=== PATIENT | male | born 1980 ===

== ENCOUNTER 2016-12-28 04:00 | Emergency (ER) | payer OTHER ==
[2016-12-28 04:18] VITALS: BP 112/75; PULSE 92; TEMP 98.2; O2SAT 98
--- NOTE | 2016-12-28 05:17 | C.PDOC ---
History Of Present Illness 36 y/o male presents to ER requesting MRI of his left hand after being placed in tight handcuffs overnight. Pt denies fall or other trauma , no weakness or numbness Time Seen by Provider: 12/28/16 04:26 Chief Complaint (Nursing): Finger,Hand,&Wrist History Per: Patient History/Exam Limitations: no limitations Severity: Moderate Exacerbating Factor(s): Movement (of left thumb) Past Medical History Vital Signs: Last Vital Signs Temp 98.2 F 12/28/16 04:15 Pulse 92 H 12/28/16 04:15 Resp 18 12/28/16 04:15 BP 112/75 12/28/16 04:15 Pulse Ox 98 12/28/16 05:38 - Medical History PMH: Anxiety, Asthma, Back Problems, Bipolar Disorder, Depression, HTN, Pancreatitis Denies: Chronic Kidney Disease - [facility] Procedures SUTURE OF LIP LACERATION (08/18/14) TETANUS TOXOID ADMINIST (08/18/14) VACCINATION NEC (05/14/15) Family History: States: Unknown Family Hx - Social History Hx Tobacco Use: Yes Hx Alcohol Use: Yes Hx Substance Use: Yes - Immunization History Hx Tetanus Toxoid Vaccination: Yes Hx Influenza Vaccination: No Hx Pneumococcal Vaccination: No Review Of Systems Musculoskeletal: Positive for: Hand Pain (and wrist pain) Neurological: Negative for: Weakness, Numbness Physical Exam - Physical Exam Appears: Well, No Acute Distress Skin: Normal Color Eye(s): bilateral: Normal Inspection Extremity: Normal ROM (but pain to left wrist and thumb on movements), Tenderness (to dorsal left wrist ), Capillary Refill (< 2 sec), No Deformity, No Swelling Extremity: Bilateral: Normal Color And Temperature Pulses: Left Radial: Normal, Right Radial: Normal Neurological/Psych: Oriented x3, Normal Motor, Normal Sensation ED Course And Treatment O2 Sat by Pulse Oximetry: 98 - Other Rad LeftWrist XR X-Ray: Interpreted by Me, Viewed By Me Interpretation: No fx or dislocation Progress Note: Pt isisted on MRI and states was told by [facility] medical staff that he needed a MRI, , I explained to pt that I will not be able to order an MRI from the ER and that an XR is not indicated either, then pt became loud and argumentative insisting now on XR. A Wrist XR ordered and does not reveal any fracture or dislocation. Pt advised to take advil and to follow up with PMD Reevaluation Time: 06:00 Reassessment Condition: Improved Disposition Counseled Patient/Family Regarding: Diagnosis, Need For Followup, Rx Given - Disposition Referrals: Non [facility] Provider, [Primary Care Provider] - Disposition Time: 05:56 Condition: STABLE Additional Instructions: Please follow up with your doctor Tylenol or advil for pain Return to ER if worse Instructions: Wrist Injury (ED) - Clinical Impression Clinical Impression: Left wrist sprain
[2016-12-28 06:27] VITALS: RESP 20
--- NOTE | 2016-12-28 10:56 | RAD ---
PROCEDURE: Left Wrist Radiographs. HISTORY: PAIN AFTER BEING IN HANDCUFFS COMPARISON: None. FINDINGS: BONES: Normal. No fracture. JOINTS: Normal. No dislocation. SOFT TISSUES: Normal. OTHER FINDINGS: None. IMPRESSION: Normal left wrist radiographs.
== END 2016-12-28 06:14 | disposition home or self-care (01) ==
LOC: C.ER 04:00 → SUPCPDRO 04:00 → C.ER 06:14
DX: S63.502A Unspecified sprain of left wrist, initial encounter (principal); X58.XXXA Exposure to other specified factors, initial encounter

== ENCOUNTER 2017-01-14 22:57 | Emergency (ER) | payer OTHER ==
[2017-01-14 23:12] VITALS: RESP 20
--- NOTE | 2017-01-15 00:18 | C.PDOC ---
History Of Present Illness Patient is a 36 year old male who presents to the ER with a complaint of generalized weakness and lightheadedness. Patient was seen recently in [place] ER for similar symptoms. Denies any suicidal ideation, homicidal ideation, headache, fever, nausea, or vomiting. Chief Complaint (Nursing): Medical Clearance History/Exam Limitations: no limitations Onset/Duration Of Symptoms: Hrs Current Symptoms Are (Timing): Still Present Past Medical History Reviewed: Historical Data, Nursing Documentation, Vital Signs Vital Signs: Last Vital Signs Temp 98.1 F 01/14/17 23:10 Pulse 85 01/14/17 23:10 Resp 20 01/14/17 23:10 BP 113/68 01/14/17 23:10 Pulse Ox 97 01/15/17 02:17 - Medical History PMH: Anxiety, Asthma, Back Problems, Bipolar Disorder, Depression, HTN, Pancreatitis Surgical History: No Surg Hx - [facility] Procedures SUTURE OF LIP LACERATION (08/18/14) TETANUS TOXOID ADMINIST (08/18/14) VACCINATION NEC (05/14/15) Family History: States: Unknown Family Hx - Social History Hx Tobacco Use: Yes Hx Alcohol Use: Yes (DENIED 01/14/2017) Hx Substance Use: Yes (DENIED 01/14/2017) - Immunization History Hx Tetanus Toxoid Vaccination: Yes Hx Influenza Vaccination: No Hx Pneumococcal Vaccination: No Review Of Systems Constitutional: Negative for: Fever, Chills Gastrointestinal: Negative for: Nausea, Vomiting Neurological: Positive for: Weakness, Other (Lightheadedness) Psych: Negative for: Suicidal ideation, Other (Homicidal Ideation) Physical Exam - Physical Exam Appears: Well, Non-toxic, No Acute Distress, Other (Verbalizing weakly) Skin: Normal Color, Warm, Dry Head: Atraumatic, Normacephalic Oral Mucosa: Moist Chest: Symmetrical, No Tenderness Cardiovascular: Rhythm Regular, No Murmur Respiratory: Normal Breath Sounds, No Rales, No Rhonchi, No Wheezing Gastrointestinal/Abdominal: Soft, No Tenderness Neurological/Psych: Oriented x3, Normal Speech, Normal Cognition, Normal Motor, Normal Sensation, Other (No focal deficit) ED Course And Treatment - Laboratory Results Result Diagrams: 01/14/17 23:50 01/14/17 23:50 O2 Sat by Pulse Oximetry: 97 (Room air) Pulse Ox Interpretation: Normal Progress Note: Blood work, EKG, and urinalysis ordered. Disposition Counseled Patient/Family Regarding: Diagnosis - Disposition Referrals: [facility] at [facility] [Outside] Disposition: HOME/ ROUTINE Disposition Time: 02:35 Condition: STABLE Instructions: Bipolar Disorder (ED), Hypocalcemia (ED), Weakness (ED) - POA Present On Arrival: None - Clinical Impression Clinical Impression: Weakness, Bipolar disorder, Hypocalcemia - Scribe Statement The provider has reviewed the documentation as recorded by the Scribscot Newman All medical record entries made by the Cathrynibscot were at my direction and personally dictated by me. I have reviewed the chart and agree that the record accurately reflects my personal performance of the history, physical exam, medical decision making, and the department course for this patient. I have also personally directed, reviewed, and agree with the discharge instructions and disposition.
[2017-01-15 00:30] LABS: CHLORIDE 104 mmol/L (98-107); POTASSIUM 3.8 mmol/L (3.6-5.2); SODIUM 142 mmol/L (132-148)
[2017-01-15 00:32] LABS: BILIRUBIN,TOTAL 0.6 mg/dL (0.2-1.3); GFR AFRICAN-AMERICAN > 60
[2017-01-15 00:33] LABS: ALB/GLOB RATIO 1.4 (1.0-2.1); ALKALINE PHOSPHATASE 42 U/L (38-126); ALT/SGPT 46 U/L (21-72); AST/SGOT 35 U/L (17-59); BLOOD UREA NITROGEN 8 mg/dL (9-20); CARBON DIOXIDE 25 mmol/L (22-30); GLUCOSE,RANDOM 78 mg/dL (75-110); TOTAL PROTEIN 6.9 g/dL (6.3-8.3)
[2017-01-15 00:34] LABS: CALCIUM 8.3 mg/dl (8.6-10.4)
[2017-01-15 00:36] LABS: BASO % 0.3 % (0.0-2.0); EOS # 0.2 K/uL (0.0-0.7); EOS % 1.9 % (0.0-4.0); HEMATOCRIT 41.6 % (35.0-51.0); LYMPH # 2.7 K/uL (1.0-4.3); LYMPH % 33.8 % (20.0-40.0); MEAN CELL VOLUME 88.7 fL (80.0-94.0); MEAN CORPUSCULAR HEMOGLOBIN 30.5 pg (27.0-31.0); MEAN CORPUSCULAR HGB CONC 34.4 g/dL (33.0-37.0); MEAN PLATELET VOLUME 9.6 fL (7.2-11.7); MONO # 0.6 K/uL (0.0-0.8); NRBC % 0.1 % (0.0-2.0); RED CELL DISTRIBUTION WIDTH 12.8 % (11.5-14.5); WHITE BLOOD COUNT 7.9 K/uL (4.8-10.8)
[2017-01-15 02:53] VITALS: BP 127/70; PULSE 93; TEMP 97.8; O2SAT 99
--- NOTE | 2017-01-20 09:11 | CARD ---
APPROVED REPORT EKG Measurement Heart [id number] [id number] <Conclusion> Normal sinus rhythm Normal ECG
== END 2017-01-15 02:53 | disposition home or self-care (01) ==
LOC: C.ER 22:57
DX: E83.51 Hypocalcemia (principal); F31.9 Bipolar disorder, unspecified; R53.1 Weakness

== ENCOUNTER 2017-06-19 02:20 | Emergency (ER) | payer OTHER ==
--- NOTE | 2017-06-19 03:34 | C.PDOC ---
History Of Present Illness 36 year old male presents to the ED with complaints of right ankle pain sustained when twisted his ankle a "long time ago." Patient denies any recent trauma, weakness, numbness, or other complaints at this time. Time Seen by Provider: 06/19/17 03:06 Chief Complaint (Nursing): Lower Extremity Problem/Injury History Per: Patient History/Exam Limitations: no limitations Onset/Duration Of Symptoms: Persistent Current Symptoms Are (Timing): Still Present Recent travel outside of the [place]: No Additional History Per: Prior Records Past Medical History Reviewed: Historical Data, Nursing Documentation, Vital Signs Vital Signs: Last Vital Signs Temp 98.3 F 06/19/17 05:50 Pulse 88 06/19/17 05:50 Resp 19 06/19/17 05:50 BP 123/78 06/19/17 05:50 Pulse Ox 96 06/19/17 05:50 - Medical History PMH: Anxiety, Asthma, Back Problems, Bipolar Disorder, Depression, HTN (no meds) , Pancreatitis - [facility] Procedures SUTURE OF LIP LACERATION (08/18/14) TETANUS TOXOID ADMINIST (08/18/14) VACCINATION NEC (05/14/15) Family History: States: Unknown Family Hx - Social History Hx Tobacco Use: Yes Hx Alcohol Use: Yes Hx Substance Use: Yes - Immunization History Hx Tetanus Toxoid Vaccination: Yes Hx Influenza Vaccination: No Hx Pneumococcal Vaccination: No Review Of Systems Constitutional: Negative for: Fever, Chills Musculoskeletal: Positive for: Foot Pain (right ankle pain ) Neurological: Negative for: Weakness, Numbness Physical Exam - Physical Exam Appears: Non-toxic, No Acute Distress Skin: Warm, Dry Head: Atraumatic, Normacephalic Eye(s): bilateral: Normal Inspection, PERRL, EOMI Neck: Supple Extremity: Normal ROM, Tenderness (mild tenderness to lateral right ankle ), No Pedal Edema, No Calf Tenderness, Capillary Refill (good capillary refill, less than two seconds ), No Deformity, Swelling (mild swelling to lateral right ankle ) Pulses: Left Dorsalis Pedis: Normal, Right Dorsalis Pedis: Normal Neurological/Psych: Oriented x3 ED Course And Treatment O2 Sat by Pulse Oximetry: 98 (RA) Progress Note: ZEB bandage was applied and patient was given motrin. Disposition Counseled Patient/Family Regarding: Diagnosis, Need For Followup - Disposition Referrals: [facility] [Outside] Disposition: HOME/ ROUTINE Disposition Time: 05:28 Condition: STABLE Additional Instructions: Wear zeb bandage for comfort. Keep foot elevated when possible. Take Tylenol or Motrin for pain. Follow up in medical clinic. Instructions: Ankle Sprain (ED) Forms: General Discharge Instructions, [facility] (French) - Clinical Impression Clinical Impression: Right ankle sprain - PA / DIRECTORY CARRIER / Resident Statement MD/DO has reviewed & agrees with the documentation as recorded. - Scribe Statement The provider has reviewed the documentation as recorded by the Scribe Marcia Hernandez All medical record entries made by the Cathrynibscot were at my direction and personally dictated by me. I have reviewed the chart and agree that the record accurately reflects my personal performance of the history, physical exam, medical decision making, and the department course for this patient. I have also personally directed, reviewed, and agree with the discharge instructions and disposition.
[2017-06-19 05:51] VITALS: BP 123/78; PULSE 88; RESP 19; TEMP 98.3
[2017-06-19 06:28] VITALS: O2SAT 98
== END 2017-06-19 06:09 | disposition home or self-care (01) ==
LOC: C.ER 02:20
DX: S93.401A Sprain of unspecified ligament of right ankle, initial encounter (principal); X50.9XXA Other and unspecified overexertion or strenuous movements or postures, initial encounter

== ENCOUNTER 2017-07-08 01:36 | Emergency (ER) | payer MEDICAID, OTHER ==
[2017-07-08 01:36] VITALS: BMI 25.8
[2017-07-08] MEDS ORDERED: Sodium Chloride 0.9% 1,000 ML IV ONE (02:08)
--- NOTE | 2017-07-08 02:09 | C.PDOC ---
History Of Present Illness 36 year old male presents to the ED for evaluation of dizziness which began earlier tonight. Patient admits to smoking marijuana. He denies headache, vision change, extremity numbness/weakness. Chief Complaint (Nursing): Dizziness/Lightheaded History Per: Patient History/Exam Limitations: no limitations Onset/Duration Of Symptoms: Hrs Current Symptoms Are (Timing): Still Present Associated Symptoms Preceding Syncopal Episode: No Predromal Symptoms (Sudden Onset) Additional History Per: Patient Past Medical History Reviewed: Historical Data, Nursing Documentation, Vital Signs Vital Signs: Last Vital Signs Temp 97.8 F 07/08/17 01:48 Pulse 112 H 07/08/17 01:48 Resp 20 07/08/17 01:48 BP 126/85 07/08/17 01:48 Pulse Ox 97 07/08/17 02:14 - Medical History PMH: Anxiety, Asthma, Back Problems, Bipolar Disorder, Depression, HTN (no meds) , Pancreatitis Denies: Diabetes, Hepatitis, HIV, Chronic Kidney Disease, Seizures, Sexually Transmitted Disease Surgical History: No Surg Hx - [facility] Procedures SUTURE OF LIP LACERATION (08/18/14) TETANUS TOXOID ADMINIST (08/18/14) VACCINATION NEC (05/14/15) Family History: States: Unknown Family Hx - Social History Hx Tobacco Use: Yes Hx Alcohol Use: No Hx Substance Use: Yes - Immunization History Hx Tetanus Toxoid Vaccination: Yes Hx Influenza Vaccination: No Hx Pneumococcal Vaccination: No Review Of Systems Eyes: Negative for: Vision Change Neurological: Positive for: Dizziness. Negative for: Weakness, Numbness, Headache Physical Exam - Physical Exam Appears: Non-toxic, No Acute Distress, Other (under the influence ) Skin: Normal Color, Warm, Dry Head: Atraumatic, Normacephalic Eye(s): bilateral: Normal Inspection Oral Mucosa: Moist Neck: Supple Chest: Symmetrical, No Deformity, No Tenderness Cardiovascular: Rhythm Regular, No Murmur Respiratory: Normal Breath Sounds, No Rales, No Rhonchi, No Wheezing Extremity: Normal ROM, Capillary Refill (less than 2 seconds ) Neurological/Psych: Oriented x3, Other (no focal deficits ) Gait: Steady ED Course And Treatment - Laboratory Results Result Diagrams: 07/08/17 02:27 07/08/17 02:27 ECG: Interpreted By Me, Viewed By Me ECG Rhythm: Sinus Rhythm ECG Interpretation: Normal, No Acute Changes Interpretation Of ECG: NSR. normal tracings Rate From EC O2 Sat by Pulse Oximetry: 97 (on RA) Pulse Ox Interpretation: Normal Progress Note: Labs, EKG, and UA ordered and reviewed. IV Fluids administered. Disposition Counseled Patient/Family Regarding: Diagnosis - Disposition Referrals: [facility] [Outside] Disposition: HOME/ ROUTINE Disposition Time: 05:27 Condition: STABLE Instructions: Polysubstance Abuse (ED) Forms: [employer] (Belgian) - POA Present On Arrival: None - Clinical Impression Clinical Impression: Polysubstance abuse - Scribe Statement The provider has reviewed the documentation as recorded by the Scribe (Samia Bhardwaj) Provider Attestation: All medical record entries made by the Scribe were at my direction and personally dictated by me. I have reviewed the chart and agree that the record accurately reflects my personal performance of the history, physical exam, medical decision making, and the department course for this patient. I have also personally directed, reviewed, and agree with the discharge instructions and disposition.
[2017-07-08] MEDS ORDERED: Sodium Chloride 0.9% 1,000 ML ONE (02:15)
[2017-07-08 02:32] LABS: BASO % 0.2 % (0.0-2.0); EOS # 0.2 K/uL (0.0-0.7); EOS % 2.5 % (0.0-4.0); HEMATOCRIT 44.7 % (35.0-51.0); LYMPH # 1.7 K/uL (1.0-4.3); LYMPH % 21.4 % (20.0-40.0); MEAN CELL VOLUME 88.4 fL (80.0-94.0); MEAN CORPUSCULAR HEMOGLOBIN 30.2 pg (27.0-31.0); MEAN CORPUSCULAR HGB CONC 34.2 g/dL (33.0-37.0); MEAN PLATELET VOLUME 9.9 fL (7.2-11.7); MONO # 0.7 K/uL (0.0-0.8); MONO % 8.2 % (0.0-10.0); RED CELL DISTRIBUTION WIDTH 13.4 % (11.5-14.5); WHITE BLOOD COUNT 8.1 K/uL (4.8-10.8)
[2017-07-08 02:33] LABS: RBC URINE < 1 /hpf (0-3); URINE BILIRUBIN NEGATIVE (NEGATIVE); URINE BLOOD NEGATIVE (NEGATIVE); URINE COLOR Straw (YELLOW); URINE GLUCOSE (UA) NORMAL (Normal); URINE KETONE NEGATIVE (NEGATIVE); URINE LEUKOCYTE ESTERASE NEG Leu/uL (Negative); URINE PROTEIN NEGATIVE (NEGATIVE); URINE UROBILINOGEN NORMAL mg/dL (0.2-1.0)
[2017-07-08 03:09] LABS: ALB/GLOB RATIO 1.2 (1.0-2.1); ALCOHOL SERUM < 10 mg/dl (0-10); ALKALINE PHOSPHATASE 54 U/L (38-126); ALT/SGPT 49 U/L (21-72); AST/SGOT 34 U/L (17-59); BILIRUBIN,TOTAL 0.5 mg/dL (0.2-1.3); BLOOD UREA NITROGEN 15 mg/dL (9-20); CALCIUM 9.6 mg/dl (8.6-10.4); CARBON DIOXIDE 32 mmol/L (22-30); CHLORIDE 97 mmol/L (98-107); GFR AFRICAN-AMERICAN > 60; GLUCOSE,RANDOM 85 mg/dL (75-110); POTASSIUM 3.8 mmol/L (3.6-5.2); SODIUM 138 mmol/L (132-148); TOTAL PROTEIN 8.2 g/dL (6.3-8.3)
[2017-07-08 05:45] VITALS: BP 112/70; PULSE 72; RESP 16; TEMP 98.1; O2SAT 96
--- NOTE | 2017-07-09 11:49 | CARD ---
APPROVED REPORT EKG Measurement Heart [id number] 140P69 [id number] <Conclusion> Normal sinus rhythm Normal ECG
== END 2017-07-08 05:37 | disposition home or self-care (01) ==
LOC: C.ER 01:36
DX: F12.90 Cannabis use, unspecified, uncomplicated (principal); I10 Essential (primary) hypertension; Z87.891 Personal history of nicotine dependence
CPT/HCPCS: 80053; 80320; 80324; 80345; 80346; 80349; 80353; 80358; 80361; 81001; 83992; 85025; 93005; 99285; J7040

== ENCOUNTER 2017-10-30 01:47 | Emergency (ER) | payer MEDICAID, OTHER ==
[2017-10-30 01:49] VITALS: BMI 25.8
[2017-10-30 02:37] VITALS: RESP 20; O2SAT 97
--- NOTE | 2017-10-30 05:42 | C.PDOC ---
History Of Present Illness Patient is a 36 y/o male who presents to the ED with complaint of flu-like symptoms for the last 2 days. Patient reports itchy and watery eyes, back pain, and runny nose. Denies any fever, chills, headache, or past medical problems. Patient notes niece was sick last week with the flu. No other physical complaints at this time. Time Seen by Provider: 10/30/17 05:15 Chief Complaint (Nursing): Cough, Cold, Congestion History Per: Patient History/Exam Limitations: no limitations Onset/Duration Of Symptoms: Days (2 days) Current Symptoms Are (Timing): Still Present Associated Symptoms: Cough, Sinus Drainage (runny nose). denies: Fever, Chills Recent travel outside of the [place]: No Past Medical History Reviewed: Historical Data, Nursing Documentation, Vital Signs Vital Signs: Last Vital Signs Temp 98 F 10/30/17 02:34 Pulse 86 10/30/17 02:34 Resp 20 10/30/17 02:34 BP 115/75 10/30/17 02:34 Pulse Ox 97 10/30/17 05:44 - Medical History PMH: Anxiety, Asthma, Back Problems, Bipolar Disorder, Depression, HTN (no meds) , Pancreatitis Denies: Diabetes, Hepatitis, HIV, Chronic Kidney Disease, Seizures, Sexually Transmitted Disease Surgical History: No Surg Hx - [facility] Procedures GROUP PSYCHOTHERAPY (07/02/17) INDIVIDUAL PSYCHOTHERAPY, COGNITIVE-BEHAVIORAL (07/02/17) SUTURE OF LIP LACERATION (08/18/14) TETANUS TOXOID ADMINIST (08/18/14) VACCINATION NEC (05/14/15) Family History: States: No Known Family Hx - Social History Hx Tobacco Use: Yes Hx Alcohol Use: No Hx Substance Use: Yes - Immunization History Hx Tetanus Toxoid Vaccination: Yes Hx Influenza Vaccination: No Hx Pneumococcal Vaccination: No Review Of Systems Constitutional: Negative for: Fever, Chills Eyes: Positive for: Other (watery and itchy eyes) Respiratory: Positive for: Cough Musculoskeletal: Positive for: Back Pain Neurological: Negative for: Headache Physical Exam - Physical Exam Appears: Non-toxic, No Acute Distress Skin: Normal Color, Warm, Dry Head: Atraumatic, Normacephalic Nose: Normal, No Discharge Oral Mucosa: Moist Throat: Normal, Erythema (mild), No Exudate Neck: Supple Chest: Symmetrical Cardiovascular: Rhythm Regular, No Murmur Respiratory: Normal Breath Sounds, No Rales, No Rhonchi, No Wheezing Extremity: Normal ROM (x4), No Tenderness Neurological/Psych: Oriented x3, Normal Speech, Normal Cognition ED Course And Treatment O2 Sat by Pulse Oximetry: 97 Progress Note: Motrin administered. Patient advised to follow up with PMD if symptoms worsen. Patient agrees with plan and is discharged. Medical Decision Making Medical Decision Making: sore throat body aches, cough back pain watery eyes, no fever- tx supportively for viral. syndrome Disposition Counseled Patient/Family Regarding: Diagnosis, Need For Followup, Rx Given - Disposition Referrals: [facility] at [facility] [Outside] Disposition: HOME/ ROUTINE Disposition Time: 05:43 Condition: STABLE Additional Instructions: Take ibupforen as prescribed for pains. Drink increased fluids, and more rest. Follow up in medical clinic next week. Prescriptions: Ibuprofen [Motrin] 600 mg PO TID #30 tab Instructions: Upper Respiratory Infection (ED) Forms: [facility] (Khmer), General Discharge Instructions - Clinical Impression Clinical Impression: Upper respiratory infection - Scribe Statement The provider has reviewed the documentation as recorded by the Scribe Gia Crawford All medical record entries made by the Scribe were at my direction and personally dictated by me. I have reviewed the chart and agree that the record accurately reflects my personal performance of the history, physical exam, medical decision making, and the department course for this patient. I have also personally directed, reviewed, and agree with the discharge instructions and disposition.
[2017-10-30 06:08] VITALS: BP 118/70; PULSE 89; TEMP 97.1
== END 2017-10-30 06:08 | disposition home or self-care (01) ==
LOC: C.ER 01:47
DX: J06.9 Acute upper respiratory infection, unspecified (principal)

== ENCOUNTER 2017-11-08 04:25 | Emergency (ER) | payer OTHER ==
[2017-11-08 04:25] VITALS: BMI 25.8
[2017-11-08 04:50] VITALS: RESP 20
[2017-11-08 04:57] VITALS: BP 101/65; PULSE 70; TEMP 98.2; O2SAT 100
--- NOTE | 2017-11-08 05:32 | C.PDOC ---
History Of Present Illness Pt c/o left sided back/neck pain. Denies injury. Time Seen by Provider: 11/08/17 04:57 Chief Complaint (Nursing): Back Pain History Per: Patient Onset/Duration Of Symptoms: Days (1) Current Symptoms Are (Timing): Still Present Severity: Moderate Exacerbating Factor(s): Turning, Movement Additional History Per: Prior Records Past Medical History Reviewed: Historical Data, Nursing Documentation, Vital Signs Vital Signs: Last Vital Signs Temp 98.2 F 11/08/17 04:56 Pulse 70 11/08/17 04:56 Resp 20 11/08/17 04:56 BP 101/65 11/08/17 04:56 Pulse Ox 100 11/08/17 05:32 - Medical History PMH: Anxiety, Asthma, Back Problems, Bipolar Disorder, Depression, HTN (no meds) , Pancreatitis - [facility] Procedures GROUP PSYCHOTHERAPY (07/02/17) INDIVIDUAL PSYCHOTHERAPY, COGNITIVE-BEHAVIORAL (07/02/17) SUTURE OF LIP LACERATION (08/18/14) TETANUS TOXOID ADMINIST (08/18/14) VACCINATION NEC (05/14/15) Family History: States: Unknown Family Hx - Social History Hx Tobacco Use: Yes Hx Alcohol Use: No Hx Substance Use: Yes - Immunization History Hx Tetanus Toxoid Vaccination: Yes Hx Influenza Vaccination: No Hx Pneumococcal Vaccination: No Review Of Systems Except As Marked, All Systems Reviewed And Found Negative. Constitutional: Negative for: Fever Cardiovascular: Negative for: Chest Pain Respiratory: Negative for: Shortness of Breath Gastrointestinal: Negative for: Vomiting, Abdominal Pain Genitourinary: Negative for: Dysuria Musculoskeletal: Positive for: Neck Pain, Back Pain Skin: Negative for: Rash Neurological: Negative for: Weakness, Numbness, Seizures, Altered Mental Status , Headache Physical Exam - Physical Exam Appears: Non-toxic, No Acute Distress Skin: Normal Color, Warm, Dry, No Rash Head: Atraumatic, Normacephalic Eye(s): bilateral: PERRL Neck: Normal ROM, No Midline Cervical Tenderness, Paracervical Tenderness (left) , No Step Off Deformity, Supple Cardiovascular: Rhythm Regular Respiratory: Normal Breath Sounds, No Accessory Muscle Use Gastrointestinal/Abdominal: Soft, No Tenderness Back: No CVA Tenderness, No Vertebral Tenderness, Paraspinal Tenderness (left) Extremity: Normal ROM, No Pedal Edema, No Calf Tenderness Pulses: Left Radial: Normal, Right Radial: Normal Neurological/Psych: Oriented x3, Normal Motor, Normal Sensation ED Course And Treatment O2 Sat by Pulse Oximetry: 100 Pulse Ox Interpretation: Normal Reassessment Condition: Improved Disposition Counseled Patient/Family Regarding: Diagnosis, Need For Followup, Rx Given - Disposition Disposition: HOME/ ROUTINE Disposition Time: 05:37 Condition: IMPROVED Additional Instructions: Follow up with your doctor within 2 days. Return to the ER if you develop weakness, numbness, worsening of symptoms or if you have any other concerns. Prescriptions: Naproxen [Naprosyn] 1 tab PO BID PRN #20 tab PRN Reason: Pain Instructions: Muscle Strain (DC) Forms: [facility] (Thai), General Discharge Instructions - Clinical Impression Clinical Impression: Pain of left side of body
== END 2017-11-08 05:41 | disposition home or self-care (01) ==
LOC: C.ER 04:25
DX: M79.1 Myalgia (principal)
CPT/HCPCS: 96372; 99283; J1885

== ENCOUNTER 2017-11-09 20:24 | Emergency (ER) | payer OTHER ==
[2017-11-09 20:24] VITALS: BMI 25.8
--- NOTE | 2017-11-09 22:16 | C.PDOC ---
Chief Complaint (Nursing): Chest Pain Past Medical History Vital Signs: Last Vital Signs Temp 98.2 F 11/09/17 20:52 Pulse 102 H 11/09/17 20:52 Resp 20 11/09/17 20:52 BP 127/75 11/09/17 20:52 Pulse Ox 98 11/09/17 20:52 - Medical History PMH: Anxiety, Asthma, Back Problems, Bipolar Disorder, Depression, HTN (no meds) , Pancreatitis Denies: HIV, Chronic Kidney Disease, Seizures, Sexually Transmitted Disease - [facility] Procedures GROUP PSYCHOTHERAPY (07/02/17) INDIVIDUAL PSYCHOTHERAPY, COGNITIVE-BEHAVIORAL (07/02/17) SUTURE OF LIP LACERATION (08/18/14) TETANUS TOXOID ADMINIST (08/18/14) VACCINATION NEC (05/14/15) Family History: States: Unknown Family Hx - Social History Hx Tobacco Use: Yes Hx Alcohol Use: No Hx Substance Use: Yes - Immunization History Hx Tetanus Toxoid Vaccination: Yes Hx Influenza Vaccination: No Hx Pneumococcal Vaccination: No ED Course And Treatment O2 Sat by Pulse Oximetry: 98 Disposition - Disposition Forms: [facility] (Central African)
--- NOTE | 2017-11-09 22:18 | C.PDOC ---
History Of Present Illness 36 y/o male presents to the ED for evaluation of mid-sternal chest pain which began around 2 days ago. Patient reports he often does some heavy lifting around the house. He states the pain worsens when he applies "pressure" onto the area. He denies fever, chills, cough, sore throat, ear pain, or pain with deep breathing. Chief Complaint (Nursing): Chest Pain History Per: Patient History/Exam Limitations: no limitations Onset/Duration Of Symptoms: Days (2) Current Symptoms Are (Timing): Still Present Quality: "Pain" Exacerbating Factors: denies: Deep Breathing Additional History Per: Patient Past Medical History Reviewed: Historical Data, Nursing Documentation, Vital Signs Vital Signs: Last Vital Signs Temp 97.9 F 11/09/17 22:26 Pulse 93 H 11/09/17 22:26 Resp 18 11/09/17 22:26 BP 122/71 11/09/17 22: Pulse Ox 98 11/10/17 00:51 - Medical History PMH: Anxiety, Asthma, Back Problems, Bipolar Disorder, Depression, HTN (no meds) , Pancreatitis Denies: HIV, Chronic Kidney Disease, Seizures, Sexually Transmitted Disease Surgical History: No Surg Hx - [facility] Procedures GROUP PSYCHOTHERAPY (07/02/17) INDIVIDUAL PSYCHOTHERAPY, COGNITIVE-BEHAVIORAL (07/02/17) SUTURE OF LIP LACERATION (08/18/14) TETANUS TOXOID ADMINIST (08/18/14) VACCINATION NEC (05/14/15) Family History: States: Unknown Family Hx - Social History Hx Tobacco Use: Yes Hx Alcohol Use: No Hx Substance Use: Yes - Immunization History Hx Tetanus Toxoid Vaccination: Yes Hx Influenza Vaccination: No Hx Pneumococcal Vaccination: No Review Of Systems Constitutional: Negative for: Fever, Chills ENT: Negative for: Ear Pain, Throat Pain Cardiovascular: Positive for: Chest Pain (mid-sternal ) Respiratory: Negative for: Cough Physical Exam - Physical Exam Appears: Non-toxic, No Acute Distress Skin: Normal Color, Warm, Dry Head: Atraumatic, Normacephalic Eye(s): bilateral: Normal Inspection Oral Mucosa: Moist Neck: Supple Chest: Symmetrical, Tenderness (right-sided costochondritis junction), Other ( reproducible pain with reaching across right arm towards left ) Cardiovascular: Rhythm Regular, No Murmur Respiratory: Normal Breath Sounds, No Rales, No Rhonchi, No Wheezing Extremity: Normal ROM, Capillary Refill (less than 2 seconds ) Neurological/Psych: Oriented x3, Normal Speech, Normal Cognition ED Course And Treatment ECG: Interpreted By Me, Viewed By Me ECG Rhythm: Sinus Rhythm Interpretation Of ECG: Normal sinus rhythm at rate 89bpm. [place] and intervals within normal limits. No ST/T wave changes. Rate From EC O2 Sat by Pulse Oximetry: 98 (on RA) Pulse Ox Interpretation: Normal Medical Decision Making Medical Decision Making: Progress: EKG ordered and reviewed. Disposition - Disposition Referrals: [facility] at [facility] [Outside] Disposition: HOME/ ROUTINE Disposition Time: 22:16 Condition: GOOD Prescriptions: Naproxen [Naprosyn] 500 mg PO BID #20 tablet Instructions: Costochondritis, Naproxen Forms: [employer] (Syriac) Print Language: FINNISH - Clinical Impression Clinical Impression: Costochondritis - Scribe Statement The provider has reviewed the documentation as recorded by the Scribe (Samia Bhardwaj) Provider Attestation: All medical record entries made by the Scribe were at my direction and personally dictated by me. I have reviewed the chart and agree that the record accurately reflects my personal performance of the history, physical exam, medical decision making, and the department course for this patient. I have also personally directed, reviewed, and agree with the discharge instructions and disposition.
[2017-11-09 22:27] VITALS: BP 122/71; PULSE 93; RESP 18; TEMP 97.9
[2017-11-10 00:44] VITALS: O2SAT 98
== END 2017-11-09 22:29 | disposition home or self-care (01) ==
LOC: C.ER 20:24
DX: M94.0 Chondrocostal junction syndrome [Tietze] (principal); I10 Essential (primary) hypertension; F17.210 Nicotine dependence, cigarettes, uncomplicated

== ENCOUNTER 2017-12-23 05:29 | Emergency (ER) | payer OTHER ==
[2017-12-23 05:30] VITALS: BMI 24.3
[2017-12-23 05:39] VITALS: BP 109/76; PULSE 78; RESP 22; TEMP 97.5; O2SAT 97
[2017-12-23] MEDS ORDERED: Bacitracin 500 Units/gm Oint Foilpak UD TOP ONE (05:46)
[2017-12-23] MEDS ORDERED: Naproxen 550 mg Tab PO STA (05:46)
--- NOTE | 2017-12-23 05:48 | C.PDOC ---
History Of Present Illness 37-year-old [id number] male presents to the emergency department for evaluation of left hand pain. Patient states he fell onto pavement, sustaining an abrasion. He now complains of pain to the left hand mainly by thumb but also all of hand. No numbness or tingling. No wrist pain, elbow or shoulder pain. Time Seen by Provider: 12/23/17 05:42 Chief Complaint (Nursing): Upper Extremity Problem/Injury History Per: Patient History/Exam Limitations: no limitations Onset/Duration Of Symptoms: Hrs Current Symptoms Are (Timing): Still Present Past Medical History Reviewed: Historical Data, Nursing Documentation, Vital Signs Vital Signs: Last Vital Signs Temp 97.5 F L 12/23/17 05:37 Pulse 78 12/23/17 05:37 Resp 22 12/23/17 05:37 BP 109/76 12/23/17 05:37 Pulse Ox 97 12/23/17 06:09 - Medical History PMH: Anxiety, Asthma, Back Problems, Bipolar Disorder, Depression, HTN (no meds) , Pancreatitis Denies: HIV, Chronic Kidney Disease, Seizures, Sexually Transmitted Disease - [facility] Procedures GROUP PSYCHOTHERAPY (07/02/17) INDIVIDUAL PSYCHOTHERAPY, COGNITIVE-BEHAVIORAL (07/02/17) SUTURE OF LIP LACERATION (08/18/14) TETANUS TOXOID ADMINIST (08/18/14) VACCINATION NEC (05/14/15) Family History: States: Unknown Family Hx - Social History Hx Tobacco Use: Yes Hx Alcohol Use: No Hx Substance Use: Yes - Immunization History Hx Tetanus Toxoid Vaccination: Yes Hx Influenza Vaccination: No Hx Pneumococcal Vaccination: No Review Of Systems Musculoskeletal: Positive for: Hand Pain (left) Skin: Positive for: Lesions Neurological: Negative for: Numbness (and tingling) Physical Exam - Physical Exam Appears: Non-toxic, No Acute Distress Skin: Warm, Dry, No Rash Head: Atraumatic, Normacephalic Eye(s): bilateral: Normal Inspection Neck: Normal ROM Extremity: Capillary Refill (< 2 sec), No Deformity, Other (superficial abrasion noted to palmar aspect of left thumb and tenderness to area, limited ROM secondary to pain) Pulses: Left Radial: Normal, Right Radial: Normal Neurological/Psych: Oriented x3, Normal Speech Gait: Steady ED Course And Treatment O2 Sat by Pulse Oximetry: 97 (RA) Pulse Ox Interpretation: Normal Medical Decision Making Medical Decision Making: Time: 5:46 Initial Plan: * Ice pack applied * X-ray left hand * Naproxen 550 mg PO * Bacitracin applied to abrasions Xray viewed by me showing no acute fracture Patient advised to ice, rest and take analgesics. Follow up with ortho if the pain persists Disposition Counseled Patient/Family Regarding: Diagnosis, Need For Followup, Rx Given - Disposition Referrals: Matt Olson III, MD [Staff Provider] - Disposition: HOME/ ROUTINE Disposition Time: 06:15 Condition: GOOD Additional Instructions: Your xray was normal, no fracture. Please apply ice to area 15 minutes three times a day. Take Motrin as needed for pain every 6 hours, with food to not upset stomach. Follow up with orthopedic if pain persists over one week. 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 - Scribe Statement The provider has reviewed the documentation as recorded by the Scribe (Candida Escobar) All medical record entries made by the Scribe were at my direction and personally dictated by me. I have reviewed the chart and agree that the record accurately reflects my personal performance of the history, physical exam, medical decision making, and the department course for this patient. I have also personally directed, reviewed, and agree with the discharge instructions and disposition.
[2017-12-23] MEDS ORDERED: Naproxen 550 mg Tab PO ONE (05:58)
[2017-12-23] MEDS ORDERED: Bacitracin 500 Units/gm Oint Foilpak UD ONE ×2 (05:58→06:02)
--- NOTE | 2017-12-23 10:33 | RAD ---
PROCEDURE: Left Hand Radiographs. HISTORY: pain s.p fall, attn thumb COMPARISON: None. FINDINGS: BONES: There is no acute displaced fracture or bone destruction. Bone alignment and mineralization are normal. There is a well-circumscribed lytic lesion with sclerotic margin in the eccentric lateral subarticular location of the base of the proximal phalanx of the 4th digit which may represent a cyst or enchondroma. JOINTS: Normal. No osteoarthritic changes. SOFT TISSUES: Normal. OTHER FINDINGS: None. IMPRESSION: No acute fracture or dislocation.
== END 2017-12-23 07:19 | disposition home or self-care (01) ==
LOC: C.ER 05:29
DX: S60.222A Contusion of left hand, initial encounter (principal); S60.512A Abrasion of left hand, initial encounter; W18.30XA Fall on same level, unspecified, initial encounter; Y92.480 Sidewalk as the place of occurrence of the external cause

== ENCOUNTER 2017-12-26 01:30 | Emergency (ER) | payer OTHER ==
[2017-12-26 01:31] VITALS: BMI 24.3
[2017-12-26 01:44] VITALS: BP 115/76; PULSE 77; RESP 22; TEMP 98.2; O2SAT 98
[2017-12-26] MEDS ORDERED: Bacitracin 500 Units/gm Oint Foilpak UD ONE (02:12)
[2017-12-26] MEDS ORDERED: Tmp-Smz 800 mg-160 mg DS Tab ONE (02:30)
--- NOTE | 2017-12-26 02:35 | C.PDOC ---
History Of Present Illness 37 y/o male presents to the ED complaining of left hand pain s/p fall 3 days ago. Of note, patient was seen here 3 days ago after the fall and had a negative x-ray of the hand. He denies any new fall or re-injury. Patient is now complaining of worsening pain to the hand. States he has been resting the hand but not icing the area. Time Seen by Provider: 12/26/17 01:51 Chief Complaint (Nursing): Upper Extremity Problem/Injury History Per: Patient History/Exam Limitations: no limitations Onset/Duration Of Symptoms: Days (x3) Current Symptoms Are (Timing): Still Present Past Medical History Reviewed: Historical Data, Nursing Documentation, Vital Signs Vital Signs: Last Vital Signs Temp 98.2 F 12/26/17 01:43 Pulse 77 12/26/17 01:43 Resp 22 12/26/17 01:43 BP 115/76 12/26/17 01:43 Pulse Ox 98 12/26/17 05:36 - Medical History PMH: Anxiety, Asthma, Back Problems, Bipolar Disorder, Depression, HTN (no meds) , Pancreatitis Denies: HIV, Chronic Kidney Disease, Seizures, Sexually Transmitted Disease - [facility] Procedures GROUP PSYCHOTHERAPY (07/02/17) INDIVIDUAL PSYCHOTHERAPY, COGNITIVE-BEHAVIORAL (07/02/17) SUTURE OF LIP LACERATION (08/18/14) TETANUS TOXOID ADMINIST (08/18/14) VACCINATION NEC (05/14/15) Family History: States: Unknown Family Hx - Social History Hx Tobacco Use: Yes Hx Alcohol Use: No Hx Substance Use: Yes - Immunization History Hx Tetanus Toxoid Vaccination: Yes Hx Influenza Vaccination: No Hx Pneumococcal Vaccination: No Review Of Systems Except As Marked, All Systems Reviewed And Found Negative. Musculoskeletal: Positive for: Hand Pain Skin: Positive for: Bruising. Negative for: Rash Neurological: Negative for: Weakness, Numbness Physical Exam - Physical Exam Appears: Non-toxic, No Acute Distress Skin: Warm, Dry Extremity: Tenderness (and ecchymosis to the proximal left hand), Capillary Refill (< 2 sec), Swelling (minimal swelling of the palm), Other (Limited ROM secondary to pain) Pulses: Left Radial: Normal, Right Radial: Normal Neurological/Psych: Oriented x3, Normal Speech ED Course And Treatment O2 Sat by Pulse Oximetry: 98 (RA) Pulse Ox Interpretation: Normal Medical Decision Making Medical Decision Making: Prior records reviewed: X-Ray Left Hand taken on 12/23/17: FINDINGS: BONES: There is no acute displaced fracture or bone destruction. Bone alignment and mineralization are normal. There is a well-circumscribed lytic lesion with sclerotic margin in the eccentric lateral subarticular location of the base of the proximal phalanx of the 4th digit which may represent a cyst or enchondroma. JOINTS: Normal. No osteoarthritic changes. SOFT TISSUES: Normal. OTHER FINDINGS: None. IMPRESSION: No acute fracture or dislocation. Time: 2:21 Initial Plan: * Motrin 600 mg PO * Velcro wrist splint applied to left hand Pt is stable for discharge home. Provided prescription for Tylenol. Pt advised to follow up in the clinic or with orthopedist for further evaluation Disposition Counseled Patient/Family Regarding: Diagnosis, Need For Followup, Rx Given - Disposition Referrals: [facility] [Outside] Disposition: HOME/ ROUTINE Disposition Time: 04:10 Condition: GOOD Additional Instructions: Follow up with the medical doctor within 1-2 days. Return if worsened. 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 - Scribe Statement The provider has reviewed the documentation as recorded by the Scribe (Candida Escobar) All medical record entries made by the Scribe were at my direction and personally dictated by me. I have reviewed the chart and agree that the record accurately reflects my personal performance of the history, physical exam, medical decision making, and the department course for this patient. I have also personally directed, reviewed, and agree with the discharge instructions and disposition.
== END 2017-12-26 04:13 | disposition home or self-care (01) ==
LOC: C.ER 01:30
DX: M79.642 Pain in left hand (principal)

== ENCOUNTER 2017-12-26 18:16 | Emergency (ER) | payer OTHER ==
[2017-12-26 18:16] VITALS: BMI 24.3
[2017-12-26 18:21] VITALS: RESP 20
--- NOTE | 2017-12-26 20:34 | C.PDOC ---
History Of Present Illness 37 year old male brought to the ED via EMS for evaluation. On arrival patient is complaining of left hand pain s/p fall 4 days ago. Patient was initially evaluated here after fall and had negative x-ray and splint applied. No new injury. No increased swelling or worsening pain. No fever or chills. Time Seen by Provider: 12/26/17 19:14 Chief Complaint (Nursing): Upper Extremity Problem/Injury History Per: Patient History/Exam Limitations: no limitations Onset/Duration Of Symptoms: Days Current Symptoms Are (Timing): Still Present Past Medical History Reviewed: Historical Data, Nursing Documentation, Vital Signs Vital Signs: Last Vital Signs Temp 97.4 F L 12/26/17 20:53 Pulse 69 12/26/17 20:53 Resp 20 12/26/17 20:53 BP 132/68 12/26/17 20:53 Pulse Ox 100 12/27/17 03:00 - Medical History PMH: Anxiety, Asthma, Back Problems, Bipolar Disorder, Depression, HTN (no meds) , Pancreatitis Denies: HIV, Chronic Kidney Disease, Seizures, Sexually Transmitted Disease Surgical History: Endoscopy - [facility] Procedures GROUP PSYCHOTHERAPY (07/02/17) INDIVIDUAL PSYCHOTHERAPY, COGNITIVE-BEHAVIORAL (07/02/17) SUTURE OF LIP LACERATION (08/18/14) TETANUS TOXOID ADMINIST (08/18/14) VACCINATION NEC (05/14/15) Family History: States: Unknown Family Hx - Social History Hx Tobacco Use: Yes Hx Alcohol Use: No Hx Substance Use: Yes - Immunization History Hx Tetanus Toxoid Vaccination: Yes Hx Influenza Vaccination: No Hx Pneumococcal Vaccination: No Review Of Systems Constitutional: Negative for: Fever, Chills Musculoskeletal: Positive for: Hand Pain Skin: Positive for: Lesions (old scabbing abrasions to left hand). Negative for : Rash Neurological: Negative for: Weakness, Numbness Physical Exam - Physical Exam Appears: Non-toxic, No Acute Distress Skin: Warm, Dry, No Rash Extremity: Normal ROM, No Tenderness, Capillary Refill (< 2 sec), No Deformity, Swelling (minimal) Pulses: Left Radial: Normal, Right Radial: Normal Neurological/Psych: Oriented x3 ED Course And Treatment O2 Sat by Pulse Oximetry: 100 (RA) Pulse Ox Interpretation: Normal Medical Decision Making Medical Decision Making: The hand is neurovascularly intact, normal Cap refill, pulses are normal. Compartments are normal and soft. The patient is sleeping and showing signs of malingering, asking staff if he can sleep and turn the lights off. The case was discussed with Dr. Kay. Splint was applied for comfort and the patient instructed to follow up with Hand doctor. Patient was take into police custody. Disposition - Disposition Referrals: Jennifer Powell MD [Staff Provider] - [facility] [Outside] Disposition: HOME/ ROUTINE Disposition Time: 20:34 Condition: FAIR Additional Instructions: Follow up with the medical doctor within 1-2 days. Return if worsened. 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 - Scribe Statement The provider has reviewed the documentation as recorded by the Scribe (Candida Escobar) All medical record entries made by the Scribe were at my direction and personally dictated by me. I have reviewed the chart and agree that the record accurately reflects my personal performance of the history, physical exam, medical decision making, and the department course for this patient. I have also personally directed, reviewed, and agree with the discharge instructions and disposition.
[2017-12-26 20:54] VITALS: BP 132/68; PULSE 69; TEMP 97.4
[2017-12-27 02:46] VITALS: O2SAT 100
--- NOTE | 2017-12-27 08:36 | RAD ---
PROCEDURE: Left Hand Radiographs. HISTORY: hand injury, continued pain COMPARISON: None. FINDINGS: BONES: No acute fracture or destructive bony lesion identified. JOINTS: Normal. No osteoarthritic changes. SOFT TISSUES: Normal. OTHER FINDINGS: None. IMPRESSION: Unremarkable left hand radiographs.
== END 2017-12-26 20:58 | disposition home or self-care (01) ==
LOC: C.ER 18:16
DX: M79.642 Pain in left hand (principal)

== ENCOUNTER 2017-12-30 17:16 | Emergency (ER) | payer OTHER ==
[2017-12-30 17:16] VITALS: BMI 24.3
[2017-12-30 17:30] VITALS: BP 96/66; PULSE 88; RESP 18; TEMP 98.9; O2SAT 97
--- NOTE | 2017-12-30 18:30 | C.PDOC ---
History Of Present Illness 37 y/o male presents to the ER complaining of pain to the right leg and left hand which has been present for the past 2 days. Patient states that he slipped on a puddle of rain and he tried to catch himself with his left hand. However, he fell hitting the back of his head and his right leg. He admits that he had LOC. Otherwise, he denies having weakness and numbness. Time Seen by Provider: 12/30/17 17:22 Chief Complaint (Nursing): Upper Extremity Problem/Injury History Per: Patient History/Exam Limitations: no limitations Onset/Duration Of Symptoms: Days Current Symptoms Are (Timing): Still Present Severity: Moderate Past Medical History Reviewed: Historical Data, Nursing Documentation, Vital Signs Vital Signs: Last Vital Signs Temp 98.9 F 12/30/17 17:24 Pulse 88 12/30/17 17:24 Resp 18 12/30/17 17:24 BP 96/66 L 12/30/17 17:24 Pulse Ox 97 12/30/17 18:33 - Medical History PMH: Anxiety, Asthma, Back Problems, Bipolar Disorder, Depression, HTN (no meds) , Pancreatitis Denies: HIV, Chronic Kidney Disease, Seizures, Sexually Transmitted Disease Surgical History: Endoscopy - [facility] Procedures GROUP PSYCHOTHERAPY (07/02/17) INDIVIDUAL PSYCHOTHERAPY, COGNITIVE-BEHAVIORAL (07/02/17) SUTURE OF LIP LACERATION (08/18/14) TETANUS TOXOID ADMINIST (08/18/14) VACCINATION NEC (05/14/15) Family History: States: No Known Family Hx - Social History Hx Tobacco Use: Yes Hx Alcohol Use: No Hx Substance Use: Yes - Immunization History Hx Tetanus Toxoid Vaccination: Yes Hx Influenza Vaccination: No Hx Pneumococcal Vaccination: No Review Of Systems Except As Marked, All Systems Reviewed And Found Negative. Constitutional: Negative for: Fever, Chills Musculoskeletal: Positive for: Hand Pain (left hand ), Leg Pain (right leg) Neurological: Negative for: Weakness, Numbness Physical Exam - Physical Exam Appears: Non-toxic, No Acute Distress Skin: Normal Color, Warm, Other (abrasions to left hand ) Head: Atraumatic, Normacephalic Eye(s): bilateral: Normal Inspection Nose: Normal Oral Mucosa: Moist Neck: Supple Chest: Symmetrical Extremity: Tenderness (tenderness to right lower leg), Swelling (swelling to right lower leg) Neurological/Psych: Oriented x3, Normal Speech ED Course And Treatment O2 Sat by Pulse Oximetry: 97 (RA) Pulse Ox Interpretation: Normal Medical Decision Making Medical Decision Making: Plan: --CT-Head --X-Ray- Left Hand --X-Ray- Right Tibia Fibula --Motrin PO --Tylenol PO Disposition Counseled Patient/Family Regarding: Diagnosis, Need For Followup, Rx Given - Disposition Disposition: HOME/ ROUTINE Disposition Time: 18:49 Condition: STABLE Prescriptions: Ibuprofen [Motrin] 600 mg PO TID #15 tab Instructions: Minor Head Injury Forms: [facility] (Georgian), General Discharge Instructions - POA Present On Arrival: None - Clinical Impression Clinical Impression: Contusion, Head injury - Scribe Statement The provider has reviewed the documentation as recorded by the Cathrynibscot Mir Provider Attestation: All medical record entries made by the Scribe were at my direction and personally dictated by me. I have reviewed the chart and agree that the record accurately reflects my personal performance of the history, physical exam, medical decision making, and the department course for this patient. I have also personally directed, reviewed, and agree with the discharge instructions and disposition.
--- NOTE | 2017-12-30 19:01 | CT ---
PROCEDURE: CT HEAD WITHOUT CONTRAST. HISTORY: FALL COMPARISON: None available. TECHNIQUE: Axial computed tomography images were obtained through the head/brain without intravenous contrast. Radiation dose: Total exam DLP = 763.19 mGy-cm. This CT exam was performed using one or more of the following dose reduction techniques: Automated exposure control, adjustment of the mA and/or kV according to patient size, and/or use of iterative reconstruction technique. FINDINGS: HEMORRHAGE: No intracranial hemorrhage. BRAIN: Normal vasquez-white matter differentiation and density are appreciated throughout the cerebrum and cerebellum with the brainstem appearing unremarkable as well. There is no mass effect. There is no suspicious extra-axial fluid collection and the midline brain anatomy appears diffusely unremarkable. VENTRICLES: Unremarkable. No hydrocephalus. CALVARIUM: No destructive bony lesion or displaced fracture identified including through the skullbase. PARANASAL SINUSES: Unremarkable as visualized. No significant inflammatory changes. MASTOID AIR CELLS: Unremarkable as visualized. No inflammatory changes. OTHER FINDINGS: None. IMPRESSION: Unremarkable unenhanced CT of the Head. No intracranial hemorrhage or fracture of the calvarium/ skull base identified.
--- NOTE | 2017-12-31 08:43 | RAD ---
PROCEDURE: Radiographs of the right tibia and fibula. HISTORY: Fall 2 days prior COMPARISON: None available. TECHNIQUE: Frontal and lateral views obtained. FINDINGS: BONES: Bone alignment and mineralization are normal. There is no acute displaced fracture or bone destruction. JOINT SPACES: Unremarkable. OTHER FINDINGS: None. IMPRESSION: No acute fracture or dislocation.
--- NOTE | 2017-12-31 08:43 | RAD ---
PROCEDURE: Left Hand Radiographs. HISTORY: Fall COMPARISON: None. FINDINGS: BONES: Bone alignment and mineralization are normal. There is no acute displaced fracture or bone destruction JOINTS: Normal. SOFT TISSUES: Normal. OTHER FINDINGS: None. IMPRESSION: No acute fracture or dislocation.
== END 2017-12-30 19:14 | disposition home or self-care (01) ==
LOC: C.ER 17:16
DX: S09.90XA Unspecified injury of head, initial encounter (principal); W01.0XXA Fall on same level from slipping, tripping and stumbling without subsequent striking against object, initial encounter; Y92.9 Unspecified place or not applicable

== ENCOUNTER 2017-12-31 22:19 | Emergency (ER) | payer OTHER ==
[2017-12-31 22:19] VITALS: BMI 24.3
[2017-12-31 22:58] VITALS: BP 111/72; PULSE 83; RESP 18; TEMP 98.5; O2SAT 97
--- NOTE | 2017-12-31 23:00 | C.PDOC ---
History Of Present Illness 37 years old male presents to ED with complaints of bruising of right lower leg and hand after falling 5 days ago. Patient states he took [id number] Motrin twice with no relief. Denies LOC, head trauma, or any other physical complaints. Time Seen by Provider: 12/31/17 22:58 Chief Complaint (Nursing): Lower Extremity Problem/Injury History Per: Patient History/Exam Limitations: no limitations Onset/Duration Of Symptoms: Days (5) Current Symptoms Are (Timing): Still Present Recent travel outside of the [place]: No Past Medical History Reviewed: Historical Data, Nursing Documentation, Vital Signs Vital Signs: Last Vital Signs Temp 98.5 F 12/31/17 22:44 Pulse 83 12/31/17 22:44 Resp 18 12/31/17 22:44 BP 111/72 12/31/17 22:44 Pulse Ox 97 12/31/17 23:32 - Medical History PMH: Anxiety, Asthma, Back Problems, Bipolar Disorder, Depression, HTN (no meds) , Pancreatitis Surgical History: Endoscopy - [facility] Procedures GROUP PSYCHOTHERAPY (07/02/17) INDIVIDUAL PSYCHOTHERAPY, COGNITIVE-BEHAVIORAL (07/02/17) SUTURE OF LIP LACERATION (08/18/14) TETANUS TOXOID ADMINIST (08/18/14) VACCINATION NEC (05/14/15) Family History: States: Unknown Family Hx - Social History Hx Tobacco Use: Yes Hx Alcohol Use: No Hx Substance Use: No - Immunization History Hx Tetanus Toxoid Vaccination: Yes Hx Influenza Vaccination: No Hx Pneumococcal Vaccination: No Review Of Systems Constitutional: Negative for: Fever, Chills Cardiovascular: Negative for: Chest Pain Gastrointestinal: Negative for: Nausea, Vomiting, Diarrhea Musculoskeletal: Positive for: Other Skin: Positive for: Bruising (right lower leg and hand ). Negative for: Rash Neurological: Negative for: Weakness, Numbness Physical Exam - Physical Exam Appears: Non-toxic, No Acute Distress Skin: Warm, Ecchymosis (To right lower leg ), Other ( Small healing excoriations to thenar eminence of left hand, no Erythema, ecchymosis , no signs of infection) Head: Atraumatic, Normacephalic Eye(s): bilateral: Normal Inspection Neck: Supple Extremity: Normal ROM (Both lower extremities and full fingers of left hand ), No Tenderness (left hand of right lower leg on palpation), No Calf Tenderness, No Deformity, No Swelling (To right lower leg ) Extremity: Bilateral: Normal Color And Temperature, Normal ROM Pulses: Left Dorsalis Pedis: Normal, Right Dorsalis Pedis: Normal Neurological/Psych: Oriented x3, Normal Speech, Normal Cognition, Normal Motor, Normal Sensation Gait: Steady ED Course And Treatment O2 Sat by Pulse Oximetry: 97 (RA) Pulse Ox Interpretation: Normal Progress Note: Administered Motrin. On review of pt's past visit it was noted that pt has been seen at least 4 x prior since 12/21 for same c/o and had XR of left hand and Rt tib fib with negative results. Pt instructed to follwo up in clinic and to continue motrin as prescribed yesterday Disposition Counseled Patient/Family Regarding: Diagnosis, Need For Followup, Rx Given - Disposition Referrals: Jasvir Fish MD [Medical Doctor] - Disposition: HOME/ ROUTINE Disposition Time: 23:20 Condition: STABLE Additional Instructions: Please follow up in clinic Apply ICE to area motrin for pain Return to ER if worse Instructions: Contusion (DC) Forms: [employer] (Slovak) - Clinical Impression Clinical Impression: Contusion - PA / MUSICAL ENGINEER / Resident Statement MD/DO has reviewed & agrees with the documentation as recorded. - Scribe Statement The provider has reviewed the documentation as recorded by the Reuben Chirinos All medical record entries made by the Cathrynibscot were at my direction and personally dictated by me. I have reviewed the chart and agree that the record accurately reflects my personal performance of the history, physical exam, medical decision making, and the department course for this patient. I have also personally directed, reviewed, and agree with the discharge instructions and disposition.
== END 2017-12-31 23:50 | disposition home or self-care (01) ==
LOC: C.ER 22:19
DX: S80.11XA Contusion of right lower leg, initial encounter (principal); W18.30XA Fall on same level, unspecified, initial encounter

== ENCOUNTER 2018-01-21 21:28 | Emergency (ER) | payer OTHER ==
[2018-01-21 21:28] VITALS: BMI 24.3
[2018-01-21 21:45] VITALS: BP 111/80; PULSE 68; RESP 14; TEMP 99.7; O2SAT 99
--- NOTE | 2018-01-21 22:04 | C.PDOC ---
History Of Present Illness 37 yo male come in for evaluation of itchy eyes, sneezing, nasal congestion, scratchy throat gradually developed since today AM. Otherwise, denies high fever , chills, throat tightness or swelling, drooling, dysphagia, dyspnea, cough, CP , SOB, wheezing, abd. pain, V/D, back pain, UTI sx. Ambulate to Ed for evaluation, not in resp. distress. Time Seen by Provider: 01/21/18 21:38 Chief Complaint (Nursing): Cough, Cold, Congestion History Per: Patient Past Medical History Reviewed: Historical Data, Nursing Documentation, Vital Signs Vital Signs: Last Vital Signs Temp 99.7 F H 01/21/18 21:43 Pulse 68 01/21/18 21:43 Resp 14 01/21/18 21:43 BP 111/80 01/21/18 21:43 Pulse Ox 99 01/21/18 22:16 - Medical History PMH: Anxiety, Asthma, Back Problems, Bipolar Disorder, Depression, HTN (no meds) , Pancreatitis Denies: HIV, Chronic Kidney Disease, Seizures, Sexually Transmitted Disease Surgical History: Endoscopy - [facility] Procedures GROUP PSYCHOTHERAPY (07/02/17) INDIVIDUAL PSYCHOTHERAPY, COGNITIVE-BEHAVIORAL (07/02/17) SUTURE OF LIP LACERATION (08/18/14) TETANUS TOXOID ADMINIST (08/18/14) VACCINATION NEC (05/14/15) Family History: States: Unknown Family Hx - Social History Hx Tobacco Use: Yes Hx Alcohol Use: No Hx Substance Use: No - Immunization History Hx Tetanus Toxoid Vaccination: Yes Hx Influenza Vaccination: No Hx Pneumococcal Vaccination: No Review Of Systems Except As Marked, All Systems Reviewed And Found Negative. Constitutional: Negative for: Fever, Chills Eyes: Positive for: Other (B/L eyes itchiness) ENT: Positive for: Nose Discharge, Nose Congestion. Negative for: Ear Pain, Ear Discharge Cardiovascular: Negative for: Chest Pain, Palpitations, Paroxysmal Noc. Dyspnea , Light Headedness Respiratory: Negative for: Cough, Shortness of Breath, Wheezing Gastrointestinal: Negative for: Nausea, Vomiting, Abdominal Pain, Diarrhea Genitourinary: Negative for: Dysuria, Frequency, Incontinence Musculoskeletal: Negative for: Neck Pain Skin: Negative for: Rash Neurological: Negative for: Weakness, Numbness, Altered Mental Status, Headache , Dizziness Physical Exam - Physical Exam Appears: Well, Non-toxic, No Acute Distress Skin: Normal Color, Warm, Dry, No Rash Head: Normacephalic Eye(s): bilateral: PERRL, EOMI (no apin or limitation on extraocular movement) Ear(s): Bilateral: Normal Nose: No Flaring, Discharge (congestion B/L with scant clear rhinorrhea) Oral Mucosa: Moist Tongue: No Swelling Lips: No Swelling Throat: No Erythema, No Drooling Neck: Trachea Midline, Supple Cardiovascular: Rhythm Regular, No Murmur Respiratory: No Decreased Breath Sounds, No Accessory Muscle Use, No Rales, No Rhonchi, No Stridor, No Wheezing Extremity: Normal ROM, No Pedal Edema, No Deformity, No Swelling Neurological/Psych: Oriented x3, Normal Speech ED Course And Treatment O2 Sat by Pulse Oximetry: 99 Pulse Ox Interpretation: Normal Progress Note: On re-evaluation, pt is afebrile, hemodynamicaly stable. Non- toxic. Tolerate Po well in ED. Not in resp. distress. PulsEOx 99% RA. ENT: no acute findings. uvula midline, no edema. Neck: Supple, (-) meningeal sign. Lungs: CTA B/L, BS equal B/L. Abd: benign. Back: (-) CVA tenderness. Neurologicaly intact. results review with pt. Pt has clinical findings c/w seasonal allergy. Pt advised on course of ds. Ref. to F/u with PMD in 2-3 days for re-eval. return to ED if any worsening or new changes. Disposition Counseled Patient/Family Regarding: Diagnosis, Need For Followup - Disposition Referrals: Jasvir Fish MD [Medical Doctor] - Disposition: HOME/ ROUTINE Disposition Time: 22:04 Condition: STABLE Additional Instructions: Take medication as prescribed Follow up with PMD in2 -3 days for re-evaluation. return to ED if any worsening or new changes. Prescriptions: Loratadine [Non-Drowsy Allergy] 10 mg PO DAILY #20 tab predniSONE [Prednisone] 20 mg PO DAILY #4 tab Instructions: Seasonal Allergies (DC) Forms: [employer] (Algerian) - Clinical Impression Clinical Impression: Seasonal allergies
== END 2018-01-21 22:31 | disposition home or self-care (01) ==
LOC: C.ER 21:28
DX: J30.2 Other seasonal allergic rhinitis (principal); I10 Essential (primary) hypertension; Z72.0 Tobacco use

== ENCOUNTER 2018-01-30 11:15 | Emergency (ER) | payer OTHER ==
[2018-01-30 11:15] VITALS: BMI 24.3
[2018-01-30 11:22] VITALS: O2SAT 100
--- NOTE | 2018-01-30 12:22 | C.PDOC ---
History Of Present Illness 37-year-old male presents to the emergency department with complaints of left thumb pain that started this morning. He states the pain began after he fell while walking in the rain. He is vague about specifics of injury. Patient denies headache, head injury, neck pain, other injuries/pain. No other complaints at this time. Time Seen by Provider: 01/30/18 11:28 Chief Complaint (Nursing): Finger,Hand,&Wrist History Per: Patient History/Exam Limitations: no limitations Current Symptoms Are (Timing): Still Present Quality: "Pain" Severity: Mild Past Medical History Reviewed: Historical Data, Nursing Documentation, Vital Signs Vital Signs: Last Vital Signs Temp 98.4 F 01/30/18 12:44 Pulse 70 01/30/18 12:44 Resp 16 01/30/18 12:44 BP 116/68 01/30/18 12:44 Pulse Ox 100 01/30/18 13:22 - Medical History PMH: Anxiety, Asthma, Back Problems, Bipolar Disorder, Depression, HTN (no meds) , Pancreatitis Surgical History: Endoscopy - [facility] Procedures GROUP PSYCHOTHERAPY (07/02/17) INDIVIDUAL PSYCHOTHERAPY, COGNITIVE-BEHAVIORAL (07/02/17) SUTURE OF LIP LACERATION (08/18/14) TETANUS TOXOID ADMINIST (08/18/14) VACCINATION NEC (05/14/15) Family History: States: No Known Family Hx - Social History Hx Tobacco Use: Yes Hx Alcohol Use: No Hx Substance Use: No - Immunization History Hx Tetanus Toxoid Vaccination: Yes Hx Influenza Vaccination: No Hx Pneumococcal Vaccination: No Review Of Systems Constitutional: Negative for: Fever, Chills Cardiovascular: Negative for: Chest Pain, Palpitations Respiratory: Negative for: Shortness of Breath Musculoskeletal: Positive for: Hand Pain (pain to left thumb) Neurological: Negative for: Weakness, Numbness, Headache, Dizziness Physical Exam - Physical Exam Appears: Well, Non-toxic, No Acute Distress, Other (Bizarre affect) Skin: Warm, Dry, No Rash Head: Atraumatic, Normacephalic Oral Mucosa: Moist Neck: Normal, Normal ROM, No Midline Cervical Tenderness, No Paracervical Tenderness, No Step Off Deformity, Supple Cardiovascular: Rhythm Regular Respiratory: Normal Breath Sounds, No Rales, No Rhonchi, No Wheezing Extremity: Normal ROM (all digits ), Capillary Refill (< 2 sec all digits ), No Deformity, No Swelling, Other (tenderness to palpation at base of first digit ( MCP) - without swelling, redness, erythema) Pulses: Left Radial: Normal, Right Radial: Normal Neurological/Psych: Oriented x3, Normal Sensation ED Course And Treatment O2 Sat by Pulse Oximetry: 100 (RA) Pulse Ox Interpretation: Normal - Other Rad XR HAND X-Ray: Read By Radiologist (Questionable fracture at the base of the first phalanx) Progress Note: Xray od right hand ordered and reviewed - shows ? small fx proximal phalanx. Patient placed in finger splint by telemetry technician and checked by me , (+) NV intact. Rx for naprosyn given, and patient instructed to follow up with hand surgeon within 1 week. Reevaluation Time: 12:20 Reassessment Condition: Improved Disposition Counseled Patient/Family Regarding: Studies Performed, Diagnosis, Need For Followup, Rx Given - Disposition Referrals: Jasvir Fish MD [Medical Doctor] - Edward Herron MD [Staff Provider] - Disposition: HOME/ ROUTINE Disposition Time: 12:20 Condition: STABLE Additional Instructions: FOLLOW UP WITH HAND SURGEON WITHIN 1 WEEK USE MEDICATION NEEDED FOR PAIN RETURN TO ER IF SYMPTOMS WORSEN Prescriptions: Naproxen 375 mg PO BID PRN #20 tablet PRN Reason: pain Instructions: Finger Fracture (DC) Forms: [employer] (Macedonian) Print Language: ESTONIAN - POA Present On Arrival: None - Clinical Impression Clinical Impression: Fracture of thumb, left, closed - Scribe Statement The provider has reviewed the documentation as recorded by the Scribe (Lacie Herrera) All medical record entries made by the Scribe were at my direction and personally dictated by me. I have reviewed the chart and agree that the record accurately reflects my personal performance of the history, physical exam, medical decision making, and the department course for this patient. I have also personally directed, reviewed, and agree with the discharge instructions and disposition.
[2018-01-30 12:45] VITALS: BP 116/68; PULSE 70; RESP 16; TEMP 98.4
--- NOTE | 2018-01-30 13:00 | RAD ---
PROCEDURE: Left Hand Radiographs. HISTORY: LEFT HAND PAIN AFTER FALL COMPARISON: None. FINDINGS: BONES: No acute fracture or destructive bony lesion identified. JOINTS: Normal. No osteoarthritic changes. SOFT TISSUES: Normal. OTHER FINDINGS: None. IMPRESSION: Unremarkable left hand radiographs.
== END 2018-01-30 12:49 | disposition home or self-care (01) ==
LOC: C.ER 11:15
DX: S62.512A Displaced fracture of proximal phalanx of left thumb, initial encounter for closed fracture (principal); W18.30XA Fall on same level, unspecified, initial encounter; Y93.01 Activity, walking, marching and hiking

== ENCOUNTER 2018-02-22 22:14 | Emergency (ER) | payer OTHER ==
[2018-02-22 22:15] VITALS: BMI 24.3
[2018-02-22 22:30] VITALS: BP 111/71; PULSE 84; RESP 18; TEMP 98.5; O2SAT 95
--- NOTE | 2018-02-22 23:39 | C.PDOC ---
History Of Present Illness 37 year old male presents to the ER with a complaint of dental pain to the left lower molars. Patient states his dentist is out of town and notes OTC medication has not been helping. Denies fever or tooth discharge. Time Seen by Provider: 02/22/18 22:54 Chief Complaint (Nursing): Dental Pain History Per: Patient History/Exam Limitations: no limitations Onset/Duration Of Symptoms: Days Current Symptoms Are (Timing): Still Present Quality: Positive for: Aching Recent travel outside of the [place]: No Past Medical History Reviewed: Historical Data, Nursing Documentation, Vital Signs Vital Signs: Last Vital Signs Temp 98.5 F 02/22/18 22:26 Pulse 84 02/22/18 22:26 Resp 18 02/22/18 22:26 BP 111/71 02/22/18 22:26 Pulse Ox 95 02/22/18 23:40 - Medical History PMH: Anxiety, Asthma, Back Problems, Bipolar Disorder, Depression, HTN (no meds) , Pancreatitis Surgical History: Endoscopy - [facility] Procedures GROUP PSYCHOTHERAPY (07/02/17) INDIVIDUAL PSYCHOTHERAPY, COGNITIVE-BEHAVIORAL (07/02/17) SUTURE OF LIP LACERATION (08/18/14) TETANUS TOXOID ADMINIST (08/18/14) VACCINATION NEC (05/14/15) Family History: States: Unknown Family Hx - Social History Hx Tobacco Use: Yes Hx Alcohol Use: No Hx Substance Use: Yes - Immunization History Hx Tetanus Toxoid Vaccination: Yes Hx Influenza Vaccination: Yes Hx Pneumococcal Vaccination: No Review Of Systems Constitutional: Negative for: Fever, Chills ENT: Positive for: Mouth Pain. Negative for: Mouth Swelling Physical Exam - Physical Exam Appears: Non-toxic Skin: Normal Color, Warm, Dry Head: Atraumatic, Normacephalic Eye(s): bilateral: Normal Inspection Oral Mucosa: Moist Tongue: Normal Appearing Lips: Normal Appearing Teeth: Caries (Left lower molars), Tender To Palpation (Left lower molars) Gingiva: No Erythema, No Swelling Neck: Normal, No Midline Cervical Tenderness, No Paracervical Tenderness, Supple Neurological/Psych: Oriented x3, Normal Speech ED Course And Treatment O2 Sat by Pulse Oximetry: 95 (Room air) Pulse Ox Interpretation: Normal Progress Note: Motrin and penicillin administered. Patient is resting comfortably in the ER in no acute distress, vitals are stable, will discharge home with Rx and instructions to follow up with dentist. Disposition - Disposition Referrals: Non [facility] Provider, [Primary Care Provider] - Disposition: HOME/ ROUTINE Disposition Time: 23:38 Condition: STABLE Additional Instructions: Please follow up with a dentist in 1-2 days Take meds as directed Return if worse Prescriptions: Ibuprofen [Motrin Tab] 800 mg PO QID #20 tab Penicillin VK [Penicillin VK Tab] 2 tab PO BID #28 tab Instructions: Dental Pain (DC) Forms: [employer] (Swiss) - Clinical Impression Clinical Impression: Dental caries - PA / CYBER SYSTEMS OPERATIONS SPECIALIST / Resident Statement MD/DO has reviewed & agrees with the documentation as recorded. - Scribe Statement The provider has reviewed the documentation as recorded by the Scribe Alexander Newman All medical record entries made by the Reuben were at my direction and personally dictated by me. I have reviewed the chart and agree that the record accurately reflects my personal performance of the history, physical exam, medical decision making, and the department course for this patient. I have also personally directed, reviewed, and agree with the discharge instructions and disposition.
== END 2018-02-22 23:56 | disposition home or self-care (01) ==
LOC: SUPCPDRO 22:14 → C.ER 22:14
DX: K02.9 Dental caries, unspecified (principal); I10 Essential (primary) hypertension; Z72.0 Tobacco use

== ENCOUNTER 2018-03-01 03:56 | Emergency (ER) | payer OTHER ==
[2018-03-01 03:56] VITALS: BMI 24.3
[2018-03-01 04:08] VITALS: BP 120/81; PULSE 62; RESP 20; TEMP 98.5; O2SAT 98
--- NOTE | 2018-03-01 04:12 | C.PDOC ---
History Of Present Illness 37 year old male presents to the ED c/o dental pain located to the left side of his mouth. Patient was seen last week in the ED with similar complaints. Patient was given prescription for Motrin and Penicillin but patient states he was not able to fill them. Patient presents today requesting stronger pain medications, states he has not been able to follow up with his dentist because he is away on vacation. Patient denies fever, chills, nausea, vomit, facial swelling, difficulty swallowing. Time Seen by Provider: 03/01/18 04:10 Chief Complaint (Nursing): Dental Pain History Per: Patient History/Exam Limitations: no limitations Onset/Duration Of Symptoms: Days Current Symptoms Are (Timing): Still Present Quality: Positive for: "Pain" Recent travel outside of the [place]: No Additional History Per: Patient Past Medical History Reviewed: Historical Data, Nursing Documentation, Vital Signs Vital Signs: Last Vital Signs Temp 98.5 F 03/01/18 04:05 Pulse 62 03/01/18 04:05 Resp 20 03/01/18 04:05 BP 120/81 03/01/18 04:05 Pulse Ox 98 03/01/18 04:23 - Medical History PMH: Anxiety, Asthma, Back Problems, Bipolar Disorder, Depression, HTN (no meds) , Pancreatitis Denies: HIV, Chronic Kidney Disease, Seizures, Sexually Transmitted Disease Surgical History: Endoscopy - [facility] Procedures GROUP PSYCHOTHERAPY (07/02/17) INDIVIDUAL PSYCHOTHERAPY, COGNITIVE-BEHAVIORAL (07/02/17) SUTURE OF LIP LACERATION (08/18/14) TETANUS TOXOID ADMINIST (08/18/14) VACCINATION NEC (05/14/15) Family History: States: Unknown Family Hx - Social History Hx Tobacco Use: Yes Hx Alcohol Use: No Hx Substance Use: Yes - Immunization History Hx Tetanus Toxoid Vaccination: Yes Hx Influenza Vaccination: Yes Hx Pneumococcal Vaccination: No Review Of Systems Constitutional: Negative for: Fever, Chills ENT: Positive for: Mouth Pain (dental) Neurological: Negative for: Headache Physical Exam - Physical Exam Appears: Non-toxic, No Acute Distress Skin: Normal Color, Warm, Dry Head: Atraumatic, Normacephalic Eye(s): bilateral: Normal Inspection, EOMI Ear(s): Bilateral: Normal Oral Mucosa: Moist Tongue: Normal Appearing, No Swelling Lips: Normal Appearing Teeth: Caries (to bilateral molars/ fill-ins), No Tender To Palpation, No Avulsed Gingiva: No Erythema, No Swelling, No Tender, No Abscess Throat: Normal Neck: Normal ROM, Supple Chest: Symmetrical Neurological/Psych: Oriented x3, Normal Speech Gait: Steady ED Course And Treatment O2 Sat by Pulse Oximetry: 98 (ON RA) Pulse Ox Interpretation: Normal Progress Note: Plan: - Motrin 800 mg PO. Patient is advised to follow up with dentist for further evaluation. Disposition Counseled Patient/Family Regarding: Diagnosis, Need For Followup, Rx Given - Disposition Referrals: Dental, dentist [Other] Disposition Time: 04:43 Condition: STABLE Additional Instructions: Please follow up with Dentist Take meds/ Fill out prescriptions given on 02/22 Return if worse Instructions: Dental Pain (DC) Forms: [employer] (Bruneian) - Clinical Impression Clinical Impression: Pain, dental - PA / IMMUNOLOGIST / Resident Statement MD/DO has reviewed & agrees with the documentation as recorded. - Scribe Statement The provider has reviewed the documentation as recorded by the Scribe Blade Moreno All medical record entries made by the Scribe were at my direction and personally dictated by me. I have reviewed the chart and agree that the record accurately reflects my personal performance of the history, physical exam, medical decision making, and the department course for this patient. I have also personally directed, reviewed, and agree with the discharge instructions and disposition.
== END 2018-03-01 04:53 | disposition home or self-care (01) ==
LOC: C.ER 03:56
DX: K08.89 Other specified disorders of teeth and supporting structures (principal)

== ENCOUNTER 2018-05-04 02:20 | Emergency (ER) | payer OTHER ==
[2018-05-04 02:20] VITALS: BMI 24.3
[2018-05-04] MEDS ORDERED: Bacitracin 500 Units/gm Oint Foilpak UD TOP ONE (02:46)
[2018-05-04] MEDS ORDERED: Bacitracin 500 Units/gm Oint Foilpak UD ONE (03:03)
--- NOTE | 2018-05-04 03:07 | C.PDOC ---
History Of Present Illness 37 year old male presents to the ER with a complaint of lip swelling. Patient states he is homeless and while sleeping at the park today he believes he was bitten on the lip and left foot by insects. Denies difficulty breath or difficulty swallowing. Time Seen by Provider: 05/04/18 02:38 Chief Complaint (Nursing): Allergic Reaction History Per: Patient History/Exam Limitations: no limitations Onset/Duration Of Symptoms: Hrs Current Symptoms Are (Timing): Still Present Location Of Injury: Left: Foot, Anterior: Face (Lip) Recent travel outside of the [place]: No Past Medical History Reviewed: Historical Data, Nursing Documentation, Vital Signs Vital Signs: Last Vital Signs Temp 97.6 F 05/04/18 05:59 Pulse 65 05/04/18 05:59 Resp 18 05/04/18 05:59 BP 113/72 05/04/18 05:59 Pulse Ox 100 05/04/18 05:59 - Medical History PMH: Anxiety, Asthma, Back Problems, Bipolar Disorder, Depression, HTN (no meds) , Pancreatitis Surgical History: Endoscopy - [facility] Procedures GROUP PSYCHOTHERAPY (07/02/17) INDIVIDUAL PSYCHOTHERAPY, COGNITIVE-BEHAVIORAL (07/02/17) SUTURE OF LIP LACERATION (08/18/14) TETANUS TOXOID ADMINIST (08/18/14) VACCINATION NEC (05/14/15) Family History: States: Unknown Family Hx - Social History Hx Tobacco Use: Yes Hx Alcohol Use: No Hx Substance Use: Yes - Immunization History Hx Tetanus Toxoid Vaccination: Yes Hx Influenza Vaccination: Yes Hx Pneumococcal Vaccination: No Review Of Systems Constitutional: Negative for: Fever, Chills ENT: Positive for: Other (Lip swelling). Negative for: Throat Swelling Respiratory: Negative for: Wheezing Skin: Positive for: Other (Insect bite) Physical Exam - Physical Exam Appears: Non-toxic, No Acute Distress Skin: Warm, Dry, No Pale, No Rash, No Ecchymosis Head: Atraumatic, Normacephalic Eye(s): bilateral: Normal Inspection, EOMI Ear(s): Bilateral: Normal Nose: Normal, No Flaring, No Discharge Oral Mucosa: Moist Tongue: Normal Appearing, No Swelling, No Lesions Lips: Swelling (Lower mild swelling, right side more with redness), No Laceration, No Lesions Teeth: Normal Dentition (fair) Gingiva: Normal Appearing, No Erythema, No Ulceration, No Swelling, No Bleeding Throat: Normal, No Erythema, No Other (Swelling) Neck: Normal, Supple, No Other (Swelling) Chest: Symmetrical Extremity: Normal ROM, No Tenderness, Capillary Refill (<2 seconds), No Swelling , Other (Superficial abrasion to dorsum of right foot) Pulses: Left Dorsalis Pedis: Normal, Right Dorsalis Pedis: Normal Neurological/Psych: Oriented x3, Normal Speech Gait: Steady ED Course And Treatment O2 Sat by Pulse Oximetry: 99 (room air) Pulse Ox Interpretation: Normal Medical Decision Making Medical Decision Making: Benadryl administered, abrasion cleansed and bacitracin applied. Patient homeless and allowed to rest in ED until morning. Patient was resting comfortably in the ER in no acute distress, vitals are stable. No intraoral swelling or difficulty swallowing or breathing upon discharge. Rx and instructions to follow up with PMD. Disposition Counseled Patient/Family Regarding: Diagnosis, Need For Followup, Rx Given - Disposition Referrals: [facility] [Outside] [facility] [Outside] Disposition: HOME/ ROUTINE Disposition Time: 05:24 Condition: GOOD Prescriptions: DiphenhydrAMINE [Benadryl] 25 mg PO Q4 PRN #30 cap PRN Reason: Rash Instructions: Insect Bites and Stings (DC) Forms: [facility] (Stateless) - POA Present On Arrival: None - Clinical Impression Clinical Impression: Insect bite - PA / FLARE STITCHER / Resident Statement MD/DO has reviewed & agrees with the documentation as recorded. - Scribe Statement The provider has reviewed the documentation as recorded by the Scribscot Newman All medical record entries made by the Cathrynibscot were at my direction and personally dictated by me. I have reviewed the chart and agree that the record accurately reflects my personal performance of the history, physical exam, medical decision making, and the department course for this patient. I have also personally directed, reviewed, and agree with the discharge instructions and disposition.
[2018-05-04 06:05] VITALS: BP 113/72; PULSE 65; RESP 18; TEMP 97.6
[2018-05-04 06:27] VITALS: O2SAT 99
== END 2018-05-04 06:15 | disposition home or self-care (01) ==
LOC: C.ER 02:20
DX: S00.561A Insect bite (nonvenomous) of lip, initial encounter (principal); W57.XXXA Bitten or stung by nonvenomous insect and other nonvenomous arthropods, initial encounter; Y92.830 Public park as the place of occurrence of the external cause; Z59.0 Homelessness; I10 Essential (primary) hypertension; Z72.0 Tobacco use